=== PATIENT | female | born 1980 | race Asian ===

== ENCOUNTER 2024-11-02 14:10 | Observation (INO) ==
[2024-11-02 14:27] VITALS: BMI 28.6
[2024-11-02 14:55] LABS: BASOPHILS # (AUTO) 0.1 X10^3/uL (0.0-0.1); BASOPHILS % (AUTO) 2.1 % (0.2-1.0); EOSINOPHILS # (AUTO) 0.1 x10^3/uL (0.0-0.2); EOSINOPHILS % (AUTO) 1.1 % (0.9-2.9); HEMATOCRIT 21.8 % (36.0-47.0); LYMPHOCYTES # (AUTO) 1.7 X10^3/uL (1.3-2.9); LYMPHOCYTES % (AUTO) 32.1 % (21.0-51.0); MEAN CORPUSCULAR HEMOGLOBIN 17.6 pg (27.0-34.0); MEAN CORPUSCULAR VOLUME 58.5 fL (80.0-100.0); MEAN PLATELET VOLUME 8.7 fL (7.4-11.0); MONOCYTES # (AUTO) 0.6 x10^3/uL (0.3-0.8); MONOCYTES % (AUTO) 10.9 % (0.0-13.0); NEUTROPHILS # (AUTO) 2.9 x10^3/uL (2.2-4.8); NEUTROPHILS % (AUTO) 53.8 % (42.0-75.0); PLATELET COUNT 244 X10^3/uL (150.0-450.0); RED BLOOD COUNT 3.73 X10^6/uL (3.5-5.4); RED CELL DISTRIBUTION WIDTH 22.2 % (11.6-16.5); WHITE BLOOD COUNT 5.4 X10^3/uL (3.6-10.0)
--- NOTE | 2024-11-02 14:55 | DR.GENAD ---
HPI Time Seen Time Seen by Provider: 11/02/24 14:55 PCP Primary Care Physician: Edmar Alvarado Complaint/Symptoms Chief Complaint:: Patient states [facility] [place] and her HGb was 6.3. She saw her PCP today in [place] and advised to come for a Blood or iron transfusion. 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 Past Surgical History Comment: Tubal Family History History of Family Medical Conditions: Yes Family Medical History: Diabetes Mellitus and Hypertension Social History Does patient currently use any type of tobacco product: No Have you used tobacco products in the last 12 months: No Type of Tobacco Use: None Does any household member use tobacco: No Alcohol Use: None Do you use any recreational Drugs:: No Lives With: Dad Lives Where: Home Travel Risk Coronavirus risk:travel/contact w/high risk person: No Has patient experienced Coronavirus symptoms: No Infectious screening In the last 2 months have you had wt loss of >10#?: NO Have you had fever, night sweats or hemotysis?: No Have you traveled outside the country in the last 6 months?: No Isolation: Standard PE Vital Signs Vitals: Vital Signs Temperature 98 F Pulse Rate 105 Respiratory Rate 16 Blood Pressure 123/61 O2 Sat by Pulse Oximetry 98 ROR Labs Reviewed 11/02/24 14:33 11/02/24 14:33 Laboratory: WBC 5.4 X10^3/uL (3.6-10.0) 11/02/24 14:33 RBC 3.73 X10^6/uL (3.5-5.4) 11/02/24 14:33 Hgb 6.6 g/dL (12.0-16.0) L* 11/02/24 14:33 Hct 21.8 % (36.0-47.0) L 11/02/24 14:33 MCV 58.5 fL (80.0-100.0) L 11/02/24 14:33 MCH 17.6 pg (27.0-34.0) L 11/02/24 14:33 MCHC 30.0 g/dL (33.0-35.0) L 11/02/24 14:33 RDW 22.2 % (11.6-16.5) H 11/02/24 14:33 Plt Count 244 X10^3/uL (150.0-450.0) 11/02/24 14:33 MPV 8.7 fL (7.4-11.0) 11/02/24 14:33 Neut % (Auto) 53.8 % (42.0-75.0) 11/02/24 14:33 Lymph % (Auto) 32.1 % (21.0-51.0) 11/02/24 14:33 Coffey % (Auto) 10.9 % (0.0-13.0) 11/02/24 14:33 Eos % (Auto) 1.1 % (0.9-2.9) 11/02/24 14:33 Baso % (Auto) 2.1 % (0.2-1.0) H 11/02/24 14:33 Neut # (Auto) 2.9 x10^3/uL (2.2-4.8) 11/02/24 14:33 Lymph # (Auto) 1.7 X10^3/uL (1.3-2.9) 11/02/24 14:33 Coffey # (Auto) 0.6 x10^3/uL (0.3-0.8) 11/02/24 14:33 Eos # (Auto) 0.1 x10^3/uL (0.0-0.2) 11/02/24 14:33 Baso # (Auto) 0.1 X10^3/uL (0.0-0.1) 11/02/24 14:33 Absolute Nucleated RBC 0.3 /100WBC 11/02/24 14:33 Sodium 140 mmol/L (136-145) 11/02/24 14:33 Corrected Sodium 140 mmol/L (136-145) 11/02/24 14:33 Potassium 3.3 mmol/L (3.5-5.1) L 11/02/24 14:33 Chloride 104 mmol/L (98-107) 11/02/24 14:33 Carbon Dioxide 21.3 mmol/L (21-32) 11/02/24 14:33 BUN 11 mg/dL (7-18) 11/02/24 14:33 Creatinine 0.65 mg/dL (0.55-1.02) 11/02/24 14:33 Est GFR (MDRD) Af Amer > 60 (>60) 11/02/24 14:33 Est GFR (MDRD) Non-Af > 60 (>60) 11/02/24 14:33 Glucose 115 mg/dL (65-99) H 11/02/24 14:33 Calcium 8.8 mg/dL (8.5-10.1) 11/02/24 14:33 Corrected Calcium TNP 11/02/24 14:33 Total Bilirubin 0.40 mg/dL (0.2-1.0) 11/02/24 14:33 AST 18 Units/L (15-37) 11/02/24 14:33 ALT 32 Units/L (12-78) 11/02/24 14:33 Alkaline Phosphatase 98 Units/L (46-116) 11/02/24 14:33 Total Protein 9.7 g/dL (6.4-8.2) H 11/02/24 14:33 Albumin 4.4 g/dL (3.4-5.0) 11/02/24 14:33 Globulin 5.3 g/dL (2.5-4.5) H 11/02/24 14:33 Albumin/Globulin Ratio 0.8 Ratio (1.1-2.1) L 11/02/24 14:33 TSH 3rd Generation 2.873 uIU/mL (0.358-3.74) 11/02/24 14:33 Blood Type O POSITIVE 11/02/24 14:53 Antibody Screen Negative 11/02/24 14:33 Crossmatch See Detail 11/02/24 14:33 Opioid Opioid Risk Tool Age (Parag box if 16-45): No History of Preadolescent Sexual Abuse: No Total: 0 Total Score Risk Category: Low Risk Copyright: Luiz NINO predicting aberrant behaviors Discharge Plan Discharge Plan Patient Disposition: 01 HOME, SELF-CARE Condition: Stable Orders to Discharge Patient Discharge Orders: Transfer (Routine); Ordered 11/02/24 Ordered By: RAZA WARREN
[2024-11-02 14:56] LABS: HEMOGLOBIN 6.6 g/dL (12.0-16.0)
[2024-11-02 15:08] LABS: ALANINE AMINOTRANSFERASE 32 Units/L (12-78); ALBUMIN 4.4 g/dL (3.4-5.0); ALKALINE PHOSPHATASE 98 Units/L (46-116); ASPARTATE AMINO TRANSFERASE 18 Units/L (15-37); BLOOD UREA NITROGEN 11 mg/dL (7-18); CALCIUM 8.8 mg/dL (8.5-10.1); CARBON DIOXIDE 21.3 mmol/L (21-32); CHLORIDE 104 mmol/L (98-107); COR NA(FOR HYPERGLY) 140 mmol/L (136-145); CREATININE 0.65 mg/dL (0.55-1.02); GLUCOSE 115 mg/dL (65-99); POTASSIUM 3.3 mmol/L (3.5-5.1); SODIUM 140 mmol/L (136-145); TOTAL PROTEIN 9.7 g/dL (6.4-8.2); TSH (3RD GENERATION) 2.873 uIU/mL (0.358-3.74); eGFR NON BLACK RACES > 60 (>60)
--- NOTE | 2024-11-02 15:10 | EKG ---
Test Reason : tachycardia Blood Pressure : */* mmHG Vent. Rate : 96 BPM Atrial Rate : 96 BPM P-R Int : 170 ms QRS Dur : 94 ms QT Int : 366 ms P-R-T Axes : 60 39 31 degrees QTc Int : 462 ms Normal sinus rhythm Incomplete right bundle branch block Cannot rule out Anterior infarct , age undetermined Abnormal ECG When compared with ECG of 16-MAR-2024 15:25, No significant change was found Confirmed by Ronnie Navarro MD ([id number]) on 11/03/2024 7:09:07 AM Referred By: Confirmed By: Ronnie Navarro MD
[2024-11-02 15:44] LABS: RETICULOCYTE % 2.57 % (0.8-2.2)
[2024-11-02 15:49] LABS: PLATELET MORPHOLOGY COMMENT NORMAL (NORMAL)
[2024-11-02 15:50] LABS: ANISOCYTOSIS 1+; HYPOCHROMASIA 3+; MICROCYTOSIS 3+
[2024-11-02] MEDS: NS 250 ML IV 250 ML IV ONE (18:17)
[2024-11-02] MEDS ORDERED: CONSULT PHARMACY - POTASSIUM & MAGNESIUM XX SCH (19:00)
[2024-11-02] MEDS: K-DUR TAB 20 MEQ PO SCH (20:50)
[2024-11-02] MEDS ORDERED: NS 250 ML IV 250 ML IV ONE (22:43)
[2024-11-02 23:55] VITALS: O2SAT 99
[2024-11-03 06:16] LABS: WHITE BLOOD COUNT 5.3 X10^3/uL (3.6-10.0)
[2024-11-03 06:19] LABS: BASOPHILS # (AUTO) 0.1 X10^3/uL (0.0-0.1); BASOPHILS % (AUTO) 1.7 % (0.2-1.0); EOSINOPHILS # (AUTO) 0.1 x10^3/uL (0.0-0.2); EOSINOPHILS % (AUTO) 1.7 % (0.9-2.9); HEMATOCRIT 27.4 % (36.0-47.0); LYMPHOCYTES # (AUTO) 1.9 X10^3/uL (1.3-2.9); MEAN CORPUSCULAR HEMOGLOBIN 20.6 pg (27.0-34.0); MEAN CORPUSCULAR HGB CONC 32.1 g/dL (33.0-35.0); MEAN CORPUSCULAR VOLUME 64.1 fL (80.0-100.0); MONOCYTES # (AUTO) 0.5 x10^3/uL (0.3-0.8); NEUTROPHILS # (AUTO) 2.7 x10^3/uL (2.2-4.8); NEUTROPHILS % (AUTO) 50.6 % (42.0-75.0); PLATELET COUNT 208 X10^3/uL (150.0-450.0); RED BLOOD COUNT 4.28 X10^6/uL (3.5-5.4); RED CELL DISTRIBUTION WIDTH 28.8 % (11.6-16.5)
[2024-11-03 06:22] LABS: HEMOGLOBIN 8.8 g/dL (12.0-16.0)
[2024-11-03 06:26] LABS: ALANINE AMINOTRANSFERASE 30 Units/L (12-78); ALBUMIN 3.9 g/dL (3.4-5.0); ALKALINE PHOSPHATASE 94 Units/L (46-116); ASPARTATE AMINO TRANSFERASE 17 Units/L (15-37); BLOOD UREA NITROGEN 9 mg/dL (7-18); CALCIUM 8.9 mg/dL (8.5-10.1); CARBON DIOXIDE 22.9 mmol/L (21-32); CHLORIDE 106 mmol/L (98-107); CREATININE 0.58 mg/dL (0.55-1.02); GLUCOSE 103 mg/dL (65-99); POTASSIUM 4.6 mmol/L (3.5-5.1); SODIUM 138 mmol/L (136-145); TOTAL PROTEIN 9.1 g/dL (6.4-8.2); eGFR NON BLACK RACES > 60 (>60)
[2024-11-03 06:42] LABS: ANISOCYTOSIS 3+; HYPOCHROMASIA 2+; MICROCYTOSIS 2+; PLATELET MORPHOLOGY COMMENT NORMAL (NORMAL); POIKILOCYTOSIS 2+
[2024-11-03 07:36] VITALS: PULSE 74
[2024-11-03] MEDS: NS 100 ML IV 100 ML with VENOFER 400 MG IV ONE (09:31)
[2024-11-03 11:57] VITALS: BP 109/63; RESP 20; TEMP 97.5
--- NOTE | 2024-11-05 13:18 | DR.SSS ---
SHORT STAY SUMMARY Admission Date Date of Admission: 11/02/24 Discharge Date Discharge Date: 11/03/24 Admission Diagnoses Admission Diagnoses: Generalized weakness Anemia Abnormal labs Discharge Diagnoses Discharge Diagnoses: Anemia requiring transfusion HANH Generalized Weakness Chief Complaint Chief Complaint: abnormal labs, weakness History of Present Illness History of Present Illness: Patient is a 44-year-old female with a past medical history of anemia presented after having abnormal labs done outpatient. She also reported having generalized weakness and dizziness. She had been having prolonged menstrual bleeding last month due to fibroids. She is currently seeing [facility]. ER workup included labs which showed hemoglobin 6.6. She was admitted for further management. Past Medical History Past Medical History: Hyperthyroidism Past Surgical History Surgical History: [employer] Surgery and Ortho Surgery Allergies Allergies Allergy/AdvReac Type Severity Reaction Status Date / Time No Known Drug Allergies Allergy Unknown Verified 10/30/22 11:07 Medications Home Medications: No Known Drug Allergies Allergy (Unknown, Verified 10/30/22 11:07) CONTINUE taking the following medications celecoxib 200 mg capsule (Celebrex) 200 mg PO QDAY PRN pain 11/02/24 [History] cyclobenzaprine 10 mg tablet 10 mg PO QPM PRN 11/02/24 [History] Family History Family Medical History: Diabetes Mellitus and Hypertension Social History Does patient currently use any type of tobacco product: No Have you used tobacco products in the last 12 months: No Type of Tobacco Use: None Does any household member use tobacco: No Alcohol Use: None Drug Use: None Review of Systems Constitutional: Weakness Eyes: No Symptoms Reported ENT: No Symptoms Reported Respiratory: No Symptoms Reported Cardiovascular: No Symptoms Reported Gastrointestinal: No Symptoms Reported Genitourinary: No Symptoms Reported Musculoskeletal: No Symptoms Reported Skin: No Symptoms Reported Neurological: No Symptoms Reported Physical Exam Vital Signs: Last Vital Signs Temp 97.7 F 11/03/24 07:34 Pulse 74 11/03/24 07:34 Resp 19 11/03/24 07:34 BP 111/64 11/03/24 07:34 Pulse Ox 99 11/03/24 07:34 O2 Del Method Room Air 11/03/24 08:31 O2 Flow Rate 2 11/03/24 08:05 FiO2 28 11/03/24 08:05 Oriented: Normal Respiratory: Clear Throughout Cardiovascular: Normal Auscultation: Bowel Sounds: Normal Palpation: Normal Tenderness: Normal Skin: Normal Musculoskeletal: Normal Psychiatric: Normal Mood Description: Calm Affect: Normal Speech Pattern: Clear and Appropriate Labs Labs: Laboratory Last Values WBC 5.3 X10^3/uL (3.6-10.0) 11/03/24 06:00 RBC 4.28 X10^6/uL (3.5-5.4) 11/03/24 06:00 Hgb 8.8 g/dL (12.0-16.0) L D 11/03/24 06:00 Hct 27.4 % (36.0-47.0) L 11/03/24 06:00 MCV 64.1 fL (80.0-100.0) L 11/03/24 06:00 MCH 20.6 pg (27.0-34.0) L 11/03/24 06:00 MCHC 32.1 g/dL (33.0-35.0) L 11/03/24 06:00 RDW 28.8 % (11.6-16.5) H 11/03/24 06:00 Plt Count 208 X10^3/uL (150.0-450.0) 11/03/24 06:00 Plt Count Comment Adequate (ADEQUATE) 11/03/24 06:00 MPV 9.0 fL (7.4-11.0) 11/03/24 06:00 Neut % (Auto) 50.6 % (42.0-75.0) 11/03/24 06:00 Lymph % (Auto) 36.0 % (21.0-51.0) 11/03/24 06:00 [place] % (Auto) 10.0 % (0.0-13.0) 11/03/24 06:00 Eos % (Auto) 1.7 % (0.9-2.9) 11/03/24 06:00 Baso % (Auto) 1.7 % (0.2-1.0) H 11/03/24 06:00 Neut # (Auto) 2.7 x10^3/uL (2.2-4.8) 11/03/24 06:00 Lymph # (Auto) 1.9 X10^3/uL (1.3-2.9) 11/03/24 06:00 [place]inson # (Auto) 0.5 x10^3/uL (0.3-0.8) 11/03/24 06:00 Eos # (Auto) 0.1 x10^3/uL (0.0-0.2) 11/03/24 06:00 Baso # (Auto) 0.1 X10^3/uL (0.0-0.1) 11/03/24 06:00 Absolute Nucleated RBC 0.5 /100WBC 11/03/24 06:00 Plt Morphology Comment Normal (NORMAL) 11/03/24 06:00 RBC Morphology Abnormal (NORMAL) A 11/03/24 06:00 Dimorphic RBCs Present 11/03/24 06:00 Hypochromasia 2+ A 11/03/24 06:00 Poikilocytosis 2+ A 11/03/24 06:00 Anisocytosis 3+ A 11/03/24 06:00 Microcytosis 2+ A 11/03/24 06:00 Absolute Retic 0.0969 10^6/uL 11/02/24 14:33 Percent Retic 2.57 % (0.8-2.2) H 11/02/24 14:33 Sodium 138 mmol/L (136-145) 11/03/24 06:00 Corrected Sodium TNP 11/03/24 06:00 Potassium 4.6 mmol/L (3.5-5.1) 11/03/24 06:00 Chloride 106 mmol/L (98-107) 11/03/24 06:00 Carbon Dioxide 22.9 mmol/L (21-32) 11/03/24 06:00 BUN 9 mg/dL (7-18) 11/03/24 06:00 Creatinine 0.58 mg/dL (0.55-1.02) 11/03/24 06:00 Est GFR (MDRD) Af Amer > 60 (>60) 11/03/24 06:00 Est GFR (MDRD) Non-Af > 60 (>60) 11/03/24 06:00 Glucose 103 mg/dL (65-99) H 11/03/24 06:00 Calcium 8.9 mg/dL (8.5-10.1) 11/03/24 06:00 Corrected Calcium TNP 11/03/24 06:00 Magnesium 2.1 mg/dL (2.0-2.9) 11/02/24 14:33 Iron 9 ug/dL (50-175) L 11/02/24 14:33 TIBC 428 ug/dL (250-450) 11/02/24 14:33 Transferrin 334 mg/dL (202-364) 11/02/24 14:33 Ferritin 4 ng/mL (8-252) L 11/02/24 14:33 Total Bilirubin 0.50 mg/dL (0.2-1.0) 11/03/24 06:00 AST 17 Units/L (15-37) 11/03/24 06:00 ALT 30 Units/L (12-78) 11/03/24 06:00 Alkaline Phosphatase 94 Units/L (46-116) 11/03/24 06:00 Total Protein 9.1 g/dL (6.4-8.2) H 11/03/24 06:00 Albumin 3.9 g/dL (3.4-5.0) 11/03/24 06:00 Globulin 5.2 g/dL (2.5-4.5) H 11/03/24 06:00 Albumin/Globulin Ratio 0.8 Ratio (1.1-2.1) L 11/03/24 06:00 Vitamin B12 363 pg/mL (193-986) 11/02/24 14:33 Folate 13.5 ng/mL (>8.6) 11/02/24 14:33 TSH 3rd Generation 2.873 uIU/mL (0.358-3.74) 11/02/24 14:33 Blood Type O POSITIVE 11/02/24 14:53 Antibody Screen Negative 11/02/24 14:33 Crossmatch See Detail 11/02/24 14:33 Hospital Course Hospital Course: Patient was admitted for anemia. She was transfused 2 units of red blood cell. Her labs were monitored and electrolytes were replaced as needed. She denied having any active bleeding. She did have prolonged menstrual bleeding due to fibroids recently. She is currently seeing [facility]. Her hemoglobin was 8.8 and she was feeling better. Her labs did show iron deficiency anemia. She was given a dose of iron infusion. She was able to ambulate in the room. She was stable to be discharged home. She will follow-up with PCP as scheduled Discharge Medications Discharge Medications: Home Medication List celecoxib 200 mg capsule (Celebrex) 200 mg PO QDAY PRN pain 11/02/24 [History] cyclobenzaprine 10 mg tablet 10 mg PO QPM PRN 11/02/24 [History] Prescriptions: Discharge Plan Discharge Plan Patient Disposition: 01 HOME, SELF-CARE Condition: Stable Health Concerns: Post Hospitalization: new medications and changes needed to prevent readmission or further decline. Pt educated and given instructions on all concerns. Care Plan Goals: Problem: Fluid Volume Deficit Goal: Maintain/Improved Adequate hydration. Instructions: Follow provided instructions. Follow up with primary physician as directed. Contact primary care physician or report to the closest Emergency Room if condition worsens. Plan of Treatment: Continue with present treatment and follow up plan. Pt is to keep follow up appointment as instructed and take medications as ordered. Assessment: No disgtress noted. Prescription drug monitoring program results: PDMP reviewed and no concerns identified Prescriptions: Continued celecoxib [Celebrex] 200 mg capsule 200 mg PO QDAY PRN (Reason: pain) cyclobenzaprine 10 mg tablet 10 mg PO QPM PRN Discontinued ibuprofen 800 mg tablet 800 mg PO TID PRN Orders to Discharge Patient Discharge Orders: Discharge (Routine); Ordered 11/03/24 Ordered By: Rose Marie Llamas Follow ups/Referrals Follow ups/Referrals: LATONYA Mesa [Other] - 11/26/24 9:00 am Referral Note: Keep previously scheduled appointment. CALEB CODY [REFERRING] - 11/10/24 9:30 am Instructions Instructions: Iron Sucrose injection, Anemia, Iron Deficiency Anemia, Adult, [id number] Stand Alone Forms: Find Help Web Site, Post Hospital Follow Up Care Print Language: [email or web address]
== END 2024-11-03 12:55 | disposition home or self-care (01) ==
LOC: ER 14:14 → MED/SURG 14:14
PROVIDERS: ADMIT Internal Medicine; ATTEND Internal Medicine
DX: R79.89 Other specified abnormal findings of blood chemistry; D64.89 Other specified anemias; D50.8 Other iron deficiency anemias; N92.0 Excessive and frequent menstruation with regular cycle; R00.0 Tachycardia, unspecified; R07.89 Other chest pain; R42 Dizziness and giddiness; R73.09 Other abnormal glucose; E87.6 Hypokalemia; R94.31 Abnormal electrocardiogram [ECG] [EKG]; Z59.12 Inadequate housing utilities; Z59.86 Financial insecurity; R53.1 Weakness; Z59.89 Other problems related to housing and economic circumstances